=== PATIENT | female | born 1950 | race Caucasian/White ===

== ENCOUNTER 2021-10-19 15:52 | Emergency (ER) | payer MEDICARE, OTHER ==
[~2021-10-19] VITALS: Ht 162.6 cm; Wt 50.0 kg
[2021-10-19 16:51] LABS: URINE BILIRUBIN - DIPSTICK NEGATIVE (NEGATIVE); URINE BLOOD DIPSTICK NEGATIVE (NEGATIVE); URINE GLUCOSE - DIPSTICK 250 mg/dL (NEGATIVE); URINE KETONE 15 mg/dL (NEGATIVE); URINE PROTEIN - DIPSTICK 100 mg/dL (NEG-TRACE); URINE SPECIFIC GRAVITY 1.025; URINE UROBILINOGEN - DIPSTICK >=8.0 E.U./dL (0.2)
[2021-10-19 16:53] LABS: URINE COLOR AMBER; URINE LEUK ESTERASE MODERATE (NEGATIVE); URINE NITRITE - DIPSTICK POSITIVE (Negative)
[2021-10-19 17:05] LABS: URINE BACTERIA RARE hpf; URINE SQUAMOUS EPITHELIAL CELL FEW EPI/hpf (0-FEW)
[2021-10-19] MEDS ORDERED: BACTRIM DS1 TAB PO (17:29)
[2021-10-19 17:30] VITALS: BP 154/81
== END 2021-10-19 17:30 | disposition home or self-care (01) ==
LOC: ED 15:52
DX: N39.0 Urinary tract infection, site not specified (principal); Z87.442 Personal history of urinary calculi